=== PATIENT | female | born 1940 | race Two or more races ===

== ENCOUNTER → 2018-04-30 | Outpatient (CLI) | payer OTHER ==
[~2018-04-30] MED LIST: SYNTHROID88 MCG PO
== END | disposition home or self-care (01) ==
LOC: TOM 10:15
DX: R10.84 Generalized abdominal pain (principal)

== ENCOUNTER 2018-05-04 10:02 | Outpatient (CLI) | payer OTHER ==
[2018-05-06] MEDS ORDERED: SYNTHROID88 MCG PO (08:14)
== END 2018-05-04 10:09 | disposition home or self-care (01) ==
LOC: LAB 10:02
DX: K40.90 Unilateral inguinal hernia, without obstruction or gangrene, not specified as recurrent (principal); Z01.812 Encounter for preprocedural laboratory examination

== ENCOUNTER 2018-05-05 06:31 | Outpatient (CLI) | payer OTHER ==
[2018-05-06] MEDS ORDERED: SYNTHROID88 MCG PO (08:14)
== END 2018-05-05 07:11 | disposition home or self-care (01) ==
LOC: EKG 06:31
DX: K40.90 Unilateral inguinal hernia, without obstruction or gangrene, not specified as recurrent (principal); Z01.810 Encounter for preprocedural cardiovascular examination

== ENCOUNTER 2018-05-12 05:45 | Day surgery (SDC) | payer OTHER | END 2018-05-12 14:20 | disposition home or self-care (01) | LOC: CIR.AMB 05:45 | DX: K40.90 Unilateral inguinal hernia, without obstruction or gangrene, not specified as recurrent (principal) ==